=== PATIENT | female | born 1990 | race Caucasian/White ===

== ENCOUNTER 2018-04-19 15:04 | Emergency (ER) | payer BC, MEDICAID ==
[2018-04-19 15:27] VITALS: BP 95/50
--- NOTE | 2018-04-19 15:42 | UC ---
Skin Complaint HPI - HPI Summary HPI Summary: Pt c/o sudden onset of upper lip swelling, itchiness and numbness X 3 days. Denies any known allergies, injury, or hx of herpes virus. - History of Current Complaint Chief Complaint: UCSkin Time Seen by Provider: 04/19/18 15:36 Stated Complaint: LIP SWELLING Hx Obtained From: Patient Hx Last Menstrual Period: 03/22/18 ?: No Onset/Duration: Gradual Onset, Lasting Days - 3 Skin Exposure Onset/Duration: Days Ago Timing: Constant Onset Severity: Mild Current Severity: None Pain Intensity: 0 Location: Other - upper lip Character: Swelling, Pruritus Aggravating Factor(s): Touch Alleviating Factor(s): Nothing Associated Signs & Symptoms: Positive: Numbness - Allergy/Home Medications Allergies/Adverse Reactions: Allergies Allergy/AdvReac Type Severity Reaction Status Date / Time No Known Allergies Allergy Verified 04/19/18 15:28 Review of Systems Constitutional: Negative Skin: Other - lip swelling Eyes: Negative ENT: Negative Respiratory: Negative Cardiovascular: Negative Gastrointestinal: Negative Genitourinary: Negative Motor: Negative Neurovascular: Negative Musculoskeletal: Negative Neurological: Negative Psychological: Negative Is Patient Immunocompromised?: No All Other Systems Reviewed And Are Negative: Yes PMH/Surg Hx/FS Hx/Imm Hx Previously Healthy: Yes - Surgical History Surgical History: None - Family History Known Family History: Positive: Hypertension Negative: Cardiac Disease, Diabetes - Social History Occupation: Employed Full-time Lives: With Family Alcohol Use: Rare Substance Use Type: None Smoking Status (MU): Never Smoked Tobacco Have You Smoked in the Last Year: No Physical Exam Triage Information Reviewed: Yes Appearance: Well-Appearing Vital Signs: Initial Vital Signs Temp 99.6 F 04/19/18 15:23 Pulse 55 04/19/18 15:23 Resp 16 04/19/18 15:23 BP 95/50 04/19/18 15:23 Pulse Ox 100 04/19/18 15:23 Vital Signs Reviewed: Yes Eye Exam: Normal ENT Exam: Normal Dental Exam: Normal Neck exam: Normal Respiratory: Positive: No respiratory distress Musculoskeletal Exam: Normal Neurological Exam: Normal Psychological Exam: Normal Skin Exam: Other - upper lip does not appear edematous, no rash, no urticaria, facial nerves intact. Course/Dx - Differential Diagnoses - Skin Complaint Differential Diagnoses: Allergic Reaction, Angioedema, Urticaria - Diagnoses Provider Diagnoses: allergic reaction Discharge - Sign-Out/Discharge Documenting (check all that apply): Discharge/Admit/Transfer - Discharge Plan Condition: Stable Disposition: HOME Prescriptions: Cetirizine* [ZyrTEC 10 MG TAB*] 10 mg PO DAILY #7 tab predniSONE TAB* [Deltasone 20 MG TAB*] 20 mg PO DAILY #4 tab Patient Education Materials: General Allergic Reaction (ED) Referrals: Radhika Linder MD [Primary Care Provider] - If Needed Additional Instructions: Please follow up with your PCP or return to clinic as needed. Please note if symptoms worsen, please seek care immediately at the closest emergency department. - Billing Disposition and Condition Condition: STABLE Disposition: Home
== END 2018-04-19 15:53 | disposition home or self-care (01) ==
LOC: UCCORT 15:04
DX: T78.40XA Allergy, unspecified, initial encounter (principal); X58.XXXA Exposure to other specified factors, initial encounter
CPT/HCPCS: 99212; G0463

== ENCOUNTER 2018-11-04 16:00 | Emergency (ER) | payer BC ==
[2018-11-04 17:08] VITALS: BP 99/73
--- NOTE | 2018-11-04 17:31 | UC ---
Respiratory Complaint HPI - History of Current Complaint Chief Complaint: UCRespiratory Stated Complaint: COUGH/CONGESTION Time Seen by Provider: 11/04/18 16:47 Hx Last Menstrual Period: 10/14/18 Pain Intensity: 4 - Allergies/Home Medications Allergies/Adverse Reactions: Allergies Allergy/AdvReac Type Severity Reaction Status Date / Time No Known Allergies Allergy Verified 11/04/18 16:57 Home Medications: Home Medications Acne Rx, ?Name 11/04/18 [History] Diphenhydra/Phenyleph/Acetamin [Cold & Flu Relief Multi-S 12.5-5-325 mg/10Ml] 1 liq PO PRN 11/04/18 [History] PMH/Surg Hx/FS Hx/Imm Hx Previously Healthy: Yes - Surgical History Surgical History: None - Family History Known Family History: Positive: Hypertension Negative: Cardiac Disease, Diabetes - Social History Alcohol Use: Rare Substance Use Type: None Smoking Status (MU): Never Smoked Tobacco Have You Smoked in the Last Year: No Physical Exam Vital Signs: Initial Vital Signs Temp 98.2 F 11/04/18 17:00 Pulse 58 11/04/18 17:00 Resp 15 11/04/18 17:00 BP 99/73 11/04/18 17:00 Pulse Ox 100 11/04/18 17:00 UC Diagnostic Evaluation - Laboratory O2 Sat by Pulse Oximetry: 100 Respiratory Course/Dx - Differential Dx/Diagnosis Provider Diagnosis: URI (upper respiratory infection) Discharge - Sign-Out/Discharge Documenting (check all that apply): Patient Departure All imaging exams completed and their final reports reviewed: No Studies - Discharge Plan Condition: Good Disposition: HOME Patient Education Materials: Upper Respiratory Infection (ED) Referrals: Radhika Linder MD [Primary Care Provider] - Additional Instructions: If not improved please follow up with pcp. - Billing Disposition and Condition Condition: GOOD Disposition: Home
[2018-11-04 17:35] LABS: Influenza A Molecular NEGATIVE (Negative); Influenza B Molecular NEGATIVE (Negative)
== END 2018-11-04 17:53 | disposition home or self-care (01) ==
LOC: UCCORT 16:00
DX: J06.9 Acute upper respiratory infection, unspecified (principal)
CPT/HCPCS: 99212; G0463

== ENCOUNTER 2019-02-05 12:16 | Emergency (ER) | payer BC ==
[2019-02-05 13:05] VITALS: BP 93/65
--- NOTE | 2019-02-05 13:51 | ED ---
GI/ HPI - HPI Summary HPI Summary: 28 yo p/w sx of recurrent yeast infection characterized bu vaginal redness burning and irritation,THIS time after her period ended but usually she gets it after sexual activity, after using strong soaps and after drinking ETOH. 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 SHe does tend to get recurrent UTI but denies urinary sx today. - History of Current Complaint Chief Complaint: UCGU Time Seen by Provider: 02/05/19 12:57 Stated Complaint: PERSONAL Hx Obtained From: Patient Hx Last Menstrual Period: January 30 Onset/Duration: Started Days Ago Timing: Constant, Intermittent Severity: Moderate Current Severity: Moderate Pain Intensity: 0 - Allergy/Home Medications Allergies/Adverse Reactions: Allergies Allergy/AdvReac Type Severity Reaction Status Date / Time No Known Allergies Allergy Verified 02/05/19 13:05 PMH/Surg Hx/FS Hx/Imm Hx Previously Healthy: Yes Respiratory History: Reports: Hx Asthma - exercise induced Infectious Disease History: No Infectious Disease History: Denies: Traveled Outside the [place] in Last 30 Days - Family History Known Family History: Positive: Hypertension Negative: Cardiac Disease, Diabetes - Social History Alcohol Use: Rare Substance Use Type: Reports: None Smoking Status (MU): Never Smoked Tobacco Have You Smoked in the Last Year: No Review of Systems - ROS Summary Review of Systems Summary: Constitutional: Negative Eyes: Negative ENT: Negative Cardiovascular: Negative Respiratory: Negative Gastrointestinal: Negative Genitourinary: see HPI Musculoskeletal: Negative Skin: Negative Neurological: Negative Psychological: Normal All Other Systems Reviewed And Are Negative: Yes Physical Exam - Summary Physical Exam Summary: Appearance: Positive: No Pain Distress Skin: Positive: Warm Head/Face: Positive: Normal Head/Face Inspection Eyes: Positive: Normal ENT: Positive: Normal ENT inspection Neck: Positive: Supple Respiratory/Lung Sounds: Positive: Clear to Auscultation. Negative: Rales, Rhonchi, Wheezes Cardiovascular: Positive: Normal, RRR, S1, S2 Abdomen Description: Positive: Nontender, Soft Musculoskeletal: Positive: Normal, Strength/ROM Intact Neurological: Positive: CN Intact II-III -pt declined pelvic exam Vital Signs On Initial Exam: Initial Vitals Temp Pulse Resp BP Pulse Ox 36.8 C 52 18 93/65 100 02/05/19 12:58 02/05/19 12:58 02/05/19 12:58 02/05/19 12:58 02/05/19 12:58 Diagnostics - Vital Signs Vital Signs Temp Pulse Resp BP Pulse Ox 02/05/19 12:58 36.8 C 52 18 93/65 100 - Laboratory Lab Statement: Any lab studies that have been ordered have been reviewed, and results considered in the medical decision making process. GIGU Course/Dx - Diagnoses Provider Diagnoses: Vaginal candidiasis Discharge - Sign-Out/Discharge Documenting (check all that apply): Patient Departure All imaging exams completed and their final reports reviewed: No Studies - Discharge Plan Condition: Stable Disposition: HOME Prescriptions: Fluconazole 150 MG TAB* [Diflucan 150 MG TAB*] 150 mg PO ONCE 3 Days #3 tablet Patient Education Materials: Yeast Infection (ED) Referrals: Radhika Linder MD [Primary Care Provider] - - Billing Disposition and Condition Condition: STABLE Disposition: Home
== END 2019-02-05 13:48 | disposition home or self-care (01) ==
LOC: UCCORT 12:16
DX: B37.3 Candidiasis of vulva and vagina (principal); J45.909 Unspecified asthma, uncomplicated; Z87.440 Personal history of urinary (tract) infections
CPT/HCPCS: 99212; G0463

== ENCOUNTER 2019-03-15 18:38 | Emergency (ER) | payer BC ==
[2019-03-15 19:16] VITALS: BP 101/64
--- NOTE | 2019-03-15 19:30 | UC ---
Lower Extremity/Ankle HPI - HPI Summary HPI Summary: 29-year-old woman comes in with a chief complaint of right lateral ankle pain. Patient recently started running for exercise. One week ago while she was running she felt a pop and a snap and felt pain in the lateral aspect of her right ankle. It's continued be swollen its tender with any Range of motion especially with inversion of the ankle. No complaint of any decreased sensation. - History of Current Complaint Chief Complaint: UCLowerExtremity Stated Complaint: RIGHT ANKLE SWELLING Time Seen by Provider: 03/15/19 19:17 Hx Last Menstrual Period: 02/09/19 Pain Intensity: 6 - Allergies/Home Medications Allergies/Adverse Reactions: Allergies Allergy/AdvReac Type Severity Reaction Status Date / Time No Known Allergies Allergy Verified 03/15/19 19:16 Home Medications: Home Medications Ibuprofen TAB* [Motrin TAB* 800 MG] 800 mg PO ONCE 03/15/19 [History Confirmed 03/15/19] PMH/Surg Hx/FS Hx/Imm Hx Previously Healthy: Yes - Surgical History Surgical History: None - Family History Known Family History: Positive: Hypertension Negative: Cardiac Disease, Diabetes - Social History Alcohol Use: Rare Substance Use Type: None Smoking Status (MU): Never Smoked Tobacco Have You Smoked in the Last Year: No Review of Systems All Other Systems Reviewed And Are Negative: Yes Constitutional: Positive: Negative Skin: Positive: Negative Eyes: Positive: Negative ENT: Positive: Negative Respiratory: Positive: Negative Cardiovascular: Positive: Negative Gastrointestinal: Positive: Negative Motor: Positive: Negative Neurovascular: Positive: Negative Musculoskeletal: Positive: Other: - SEE HPI Neurological: Positive: Negative Psychological: Positive: Negative Is Patient Immunocompromised?: No Physical Exam Triage Information Reviewed: Yes Appearance: Well-Appearing, No Pain Distress, Well-Nourished Vital Signs: Initial Vital Signs Temp 99.0 F 03/15/19 19:12 Pulse 57 03/15/19 19:12 Resp 16 03/15/19 19:12 BP 101/64 03/15/19 19:12 Pulse Ox 99 03/15/19 19:12 Vital Signs Reviewed: Yes Eye Exam: Normal Eyes: Positive: Conjunctiva Clear Neck: Positive: Supple Respiratory: Positive: No respiratory distress Musculoskeletal: Positive: Other: - Right ankle is swollen and tender to palpation on the lateral aspect. The bony prominence of the distal fibula is tender to palpation. Normal dorsalis pedis pulse normal capillary refill no sensation deficit. The foot is nontender. The Achilles tendon is intact and nontender. Neurological Exam: Normal Neurological: Positive: Alert, Muscle Tone Normal Psychological Exam: Normal Psychological: Positive: Age Appropriate Behavior Skin Exam: Normal Lower Extremity Course/Dx - Course Course Of Treatment: I discussed the x-rays with the patient. I do not see any fracture radiologist reading is pending. In clinic patient got an Norm wrap and a gel splint is neurovascularly intact after placement by nursing. Also can use crutches as needed. We discussed eyes anti-inflammatories immobilization and rest. Follow- up with sports medicine if not completely improved. - Differential Dx/Diagnosis Provider Diagnosis: Right ankle sprain Discharge - Sign-Out/Discharge Documenting (check all that apply): Patient Departure All imaging exams completed and their final reports reviewed: No - Discharge Plan Condition: Stable Disposition: HOME Patient Education Materials: Ankle Sprain (ED), Crutch Instructions (ED) Referrals: Radhika Linder MD [Primary Care Provider] - [facility] [Provider Group] Additional Instructions: FOLLOW UP WITH SPORTS MEDICINE. GET RECHECKED SOONER IF YOUR CONDITION WORSENS OR ANY QUESTIONS OR CONCERNS. - Billing Disposition and Condition Condition: STABLE Disposition: Home
--- NOTE | 2019-03-16 07:30 | UC ---
- Progress Note Progress Note: Patient Name: ASHTYN AVILA Medical Record#: [id number] Ordering Physician: Paul Schmidt MD Acct.#: [id number] : 1990 Age: 29 Sex: F Location: URGENT [facility] Exam Date: 03/15/191923 ADM Status: [facility] ER Order Information: ANKLE RIGHT 3+VWS Accession Number: [id number] CPT: 67684 INDICATION: Right ankle injury. TECHNIQUE: 3 views of the right ankle were obtained. FINDINGS: Soft tissue swelling is noted along the anterolateral aspect of the ankle. No fracture is seen. Joint spaces appear maintained. IMPRESSION: SOFT TISSUE SWELLING, NO FRACTURE IS SEEN. R0 Preliminary Imaging Read R0 <Electronically signed by Arnie Kruger MD in OV> 03/16/19709 Dictated By: Arnie Kruger MD Dictated Date/Time: 03/16/19709 Transcribed Date/Time: 03/16/19708 Copy to: CC:Radhika Linder MD; Paul Schmidt MD Imaging - [facility] Imaging - [facility] [address] [place] [address] ph [phone]) ph ([phone]) ph ([phone]) This report is only to be considered final once signed by the Provider(s) as displayed in the "<Electronically Signed by >" field (s). Absence of a signature indicates the report is in a draft status and still needs to be finalized. In the event this document was created by someone other than the signing Provider, the individual initiating the document will be listed in the "Entered by:" or "Dictated by:" [email or web address]. 1 of 1 Course/Dx - Diagnoses Provider Diagnoses: Right ankle sprain Discharge - Sign-Out/Discharge Documenting (check all that apply): Post-Discharge Follow Up All imaging exams completed and their final reports reviewed: Yes - Discharge Plan Condition: Stable Disposition: HOME Patient Education Materials: Ankle Sprain (ED), Crutch Instructions (ED) Referrals: [facility] [Provider Group] Radhika Linder MD [Primary Care Provider] - Additional Instructions: FOLLOW UP WITH SPORTS MEDICINE. GET RECHECKED SOONER IF YOUR CONDITION WORSENS OR ANY QUESTIONS OR CONCERNS. - Billing Disposition and Condition Condition: STABLE Disposition: Home
== END 2019-03-15 20:21 | disposition home or self-care (01) ==
LOC: UCCORT 18:38
DX: S93.401A Sprain of unspecified ligament of right ankle, initial encounter (principal); X50.0XXA Overexertion from strenuous movement or load, initial encounter; Y93.02 Activity, running; Y92.9 Unspecified place or not applicable
CPT/HCPCS: 99213; G0463

== ENCOUNTER 2019-06-27 16:46 | Emergency (ER) | payer BC ==
--- NOTE | 2019-06-27 20:04 | UC ---
Complaint Female HPI - HPI Summary HPI Summary: 29-year-old female presents with 2 day history of dysuria and urinary frequency. Patient also reports a thick, white vaginal discharge. States that she had unprotected intercourse with a new male partner approximately one week ago. Previous history of Chlamydia. Last menstrual period was 06/08/2019. Denies fever, chills, abdominal pain, nausea, vomiting, back or flank pain, hematuria, urgency, vaginal lesions, or dyspareunia. - History Of Current Complaint Chief Complaint: UCGU Stated Complaint: URINARY Time Seen by Provider: 06/27/19 18:29 Hx Obtained From: Patient Hx Last Menstrual Period: 06/08/19 Pain Intensity: 2 - Allergies/Home Medications Allergies/Adverse Reactions: Allergies Allergy/AdvReac Type Severity Reaction Status Date / Time No Known Allergies Allergy Verified 06/27/19 17:59 Home Medications: Home Medications NK [No Home Medications Reported] 06/27/19 [History Confirmed 06/27/19] PMH/Surg Hx/FS Hx/Imm Hx Previously Healthy: Yes - Denies significant PMH - Surgical History Surgical History: None - Family History Known Family History: Positive: Hypertension Negative: Cardiac Disease, Diabetes - Social History Occupation: Employed Full-time Lives: With Family Alcohol Use: Rare Substance Use Type: None Smoking Status (MU): Never Smoked Tobacco Have You Smoked in the Last Year: No Review of Systems All Other Systems Reviewed And Are Negative: Yes Constitutional: Negative: Fever, Chills Skin: Negative: Rash Respiratory: Positive: Negative Cardiovascular: Positive: Negative Gastrointestinal: Negative: Abdominal Pain, Vomiting, Diarrhea, Nausea Genitourinary: Positive: Dysuria, Frequency, Vaginal/Penile Discharge. Negative : Hematuria, Urgency, Vaginal/Penile Burning, Vaginal/Penile Itching, Ulceration /Lesion, Abnormal Bleeding Musculoskeletal: Positive: Negative Neurological: Positive: Negative Psychological: Positive: Negative Is Patient Immunocompromised?: No Physical Exam - Summary Physical Exam Summary: GENERAL APPEARANCE: Well developed, well nourished, alert and cooperative, and appears to be in no acute distress. CARDIAC: Normal S1 and S2. No S3, S4 or murmurs. Rhythm is regular. There is no peripheral edema, cyanosis or pallor. Extremities are warm and well perfused. Capillary refill is less than 2 seconds. Peripheral pulses intact. LUNGS: Clear to auscultation without rales, rhonchi, wheezing or diminished breath sounds. ABDOMEN: Positive bowel sounds. Soft, nondistended, nontender. No guarding or rebound. No masses or hepatosplenomegally. No CVA tenderness. GENITOURINARY: Normal external genitalia without lesions or ulcerations. Thick , white vaginal discharge. Parous cervix without lesions. No CMT. No adnexal masses or tenderness. Cultures were obtained and sent. MUSKULOSKELETAL: ROM intact to all extremities. No joint erythema or tenderness. Normal muscular development. Normal gait. SKIN: Skin normal color, texture and turgor with no lesions or eruptions. Triage Information Reviewed: Yes Vital Signs: Initial Vital Signs Temp 98.7 F 06/27/19 17:52 Pulse 60 06/27/19 17:52 Resp 16 06/27/19 17:52 BP 95/65 06/27/19 17:52 Pulse Ox 99 06/27/19 17:52 Vital Signs Reviewed: Yes Complaint Female Dx - Course Course Of Treatment: 29-year-old female presents with 2 day history of dysuria and urinary frequency. Patient also reports a thick, white vaginal discharge. States that she had unprotected intercourse with a new male partner approximately one week ago. Previous history of Chlamydia. Last menstrual period was 06/08/2019. Denies fever, chills, abdominal pain, nausea, vomiting, back or flank pain, hematuria, urgency, vaginal lesions, or dyspareunia. Afebrile. Vital signs stable. Patient had a soft, nontender abdomen, no CVA tenderness, normal external genitalia without lesions or ulcerations, thick white vaginal discharge , parous cervix without lesions, no motion tenderness, no adnexal masses or tenderness, and otherwise unremarkable exam. [id number] urinalysis showed trace blood and was otherwise unremarkable. Urine culture pending. Point-of- care urine was negative. Cultures were sent for gonorrhea, chlamydia , Gardnerella, Trichomonas, and vaginal yeast. Discussed empiric treatment for possible sexually transmitted infection versus awaiting the results of her cultures and patient is electing for the latter. She has been advised to avoid sexual intercourse until the results are obtained. She is to follow-up with her primary care provider in 3 days if symptoms persist. Anticipatory guidance and warning symptoms were reviewed with the patient. Verbalizes understanding and agrees with plan of care. - Differential Dx/Diagnosis Differential Diagnosis/HQI/PQRI: Cervicitis, Ovarian Cyst, Pelvic Inflammatory Disease, , Renal Colic, Sexually Transmitted Disease, Urinary Tract Infection Provider Diagnosis: Dysuria Discharge ED - Sign-Out/Discharge Documenting (check all that apply): Patient Departure All imaging exams completed and their final reports reviewed: No Studies - Discharge Plan Condition: Stable Disposition: HOME Patient Education Materials: Dysuria (ED) Referrals: Radhika Linder MD [Primary Care Provider] - 3 Days Additional Instructions: Your urine test in the clinic today showed a trace amount of blood but no evidence of a urinary tract infection. We will send a urine culture today to see if bacteria grow out and then prescribe an antibiotic that is appropriate if indicated. It will take 48-72 hours to get these results. We have also performed testing for gonorrhea, chlamydia, bacterial vaginosis, vaginal yeast infection, and trichimonas. We will contact you if these are positive and start appropriate treatment as indicated. You should avoid all sexual intercourse until we have these results. Drink plenty of fluids. To help prevent urinary tract infections: 1) Be sure to wipe from front to back. 2) Urinate immediately after any sexual intercourse. 3) Avoid taking bubble baths. Follow up with your primary care provider in 3 days if symptoms persist. Seek immediate medical attention in the emergency room if you develop fever greater than 100.5 F, have severe abdominal pain, persistent vomiting, or any worsening of symptoms. - Billing Disposition and Condition Condition: STABLE Disposition: Home
[2019-06-27 20:15] VITALS: BP 105/71
[2019-06-29 13:04] LABS: Chlamydia trachomatis NAA Negative (Negative); Neisseria gonorrhoeae (GC) NAA Negative (Negative)
== END 2019-06-27 20:15 | disposition home or self-care (01) ==
LOC: UCCORT 16:46
DX: R30.0 Dysuria (principal)
CPT/HCPCS: 81003; 84702; 87086; 87480; 87491; 87510; 87591; 87661; 99212; G0463

== ENCOUNTER 2019-08-08 15:21 | Emergency (ER) | payer BC ==
[2019-08-08 17:26] VITALS: BP 137/65
--- NOTE | 2019-08-08 17:29 | UC ---
Complaint Female HPI - HPI Summary HPI Summary: 29 y/o female presents to the urgent care c/o vaginal irritation and redness w/ a white vaginal discharge s/p unprotected sexual intercourse 2 day ago w/ a new partner. She is concerned on STD's. She also c/o of itchiness. Pt denies urinary symptoms. She states PMHX of chlamydia in the past which was treated. Pt denies pelvic pain or lower back pain. Last PAP was last year and negative. Pt took a Dyflucan PO yesterday that she has from a previous Rx. However she feels her vaginal discharge is very profuse. Pt denies fever, SOB, abdominal pain, flank pain, N/V/D, hematuria. - History Of Current Complaint Chief Complaint: UCGU Stated Complaint: PERSONAL Time Seen by Provider: 08/08/19 17:20 Hx Obtained From: Patient Hx Last Menstrual Period: 08/03 ?: No Onset/Duration: Gradual Onset, Lasting Days - 2 days of n=unprotected sexual intercourse w/ a white vaginal discharge, Still Present, Worse Since - today Timing: Constant Severity Initially: Mild Severity Currently: Moderate Pain Intensity: 4 - vaginal irritation Pain Scale Used: 0-10 Numeric Character: Dull Aggravating Factor(s): Canalou Alleviating Factor(s): Nothing Associated Signs And Symptoms: Negative: Fever, Back Pain - white w/ itchiness, Nausea, Vomiting(# Of Episodes =), Genital Swelling, Genital Blisters - Risk Factors Ectopic Risk Factor: Negative Ovarian Torsion Risk Factor: Negative - Allergies/Home Medications Allergies/Adverse Reactions: Allergies Allergy/AdvReac Type Severity Reaction Status Date / Time No Known Allergies Allergy Verified 08/08/19 17:19 PMH/Surg Hx/FS Hx/Imm Hx Previously Healthy: Yes Respiratory History: Asthma - Surgical History Surgical History: None - Family History Known Family History: Positive: Hypertension, Diabetes Negative: Cardiac Disease - Social History Occupation: Employed Full-time Lives: With Family Alcohol Use: Rare Substance Use Type: None Smoking Status (MU): Never Smoked Tobacco Have You Smoked in the Last Year: No Review of Systems All Other Systems Reviewed And Are Negative: Yes Constitutional: Positive: Negative Skin: Positive: Negative Eyes: Positive: Negative ENT: Positive: Negative Respiratory: Positive: Negative Cardiovascular: Positive: Negative Gastrointestinal: Positive: Negative Genitourinary: Positive: Vaginal/Penile Itching, Vaginal/Penile Discharge - white, Vaginal/Penile Tenderness - irritation Motor: Positive: Negative Neurovascular: Positive: Negative Musculoskeletal: Positive: Negative Neurological: Positive: Negative Psychological: Positive: Negative Is Patient Immunocompromised?: No Physical Exam - Summary Physical Exam Summary: Vital signs: reviewed General: well developed, well nourished femalet sitting in the examining table w/o any acute distress. Head: Normocephalic, no lesions. Eyes: PERRLA, EOM's full, conjunctiva clear, fundi grossly normal. Ears: EAC's clear, TM's normal. Nose: Mucosa normal, no obstruction. Throat: Clear, no exudates, no lesions. Neck: Supple, no masses, no thyromegaly, no bruits. Chest: Lungs clear, no rales, no rhonchi, no wheezes. Heart: RR, no murmurs, no rubs, no gallops. Abdomen: Soft, no tenderness, no masses, BS normal. Pelvic: I was assisted by nurse Allyn. External genitalia within normal limits. There is no lesions there is no masses noted. Speculum exam: The vaginal glass are within normal limits w/ white cottage cheese vaginal discharge , no lesions or rashes. The cervix is closed with no lesions or masses. There is no CMT's, and no adnexal masses. Sample sent to Lab for G/C and Affirm panel and thrichomonas. Rectal: No lesions, no hemorrhoids, Back: Normal curvature, no tenderness. Extremities: FROM, no deformities, no edema, no erythema. Neuro: Physiological, no localizing findings. Skin: Normal, no rashes, no lesions noted. Triage Information Reviewed: Yes Vital Signs: Initial Vital Signs Temp 98.2 F 08/08/19 17:21 Pulse 87 08/08/19 17:21 Resp 20 08/08/19 17:21 BP 137/65 08/08/19 17:21 Pulse Ox 99 08/08/19 17:21 Complaint Female Dx - Course Course Of Treatment: 29 y/o female presents to the urgent care c/o vaginal irritation and redness w/ a white vaginal discharge s/p unprotected sexual intercourse 2 day ago w/ a new partner. She is concerned on STD's. She also c/o of itchiness. Pt denies urinary symptoms. She states PMHX of chlamydia in the past which was treated. Pt denies pelvic pain or lower back pain. Last PAP was last year and negative. Pt took a Dyflucan PO yesterday that she has from a previous Rx. However she feels her vaginal discharge is very profuse. Pt denies fever, SOB, abdominal pain, flank pain, N/V/D, hematuria. Hx obtained. I was assisted by nurse Zaina for pelvic exam. Pt w/ a white cottage cheese vaginal discharge on pelvic examination. Pt w/ probably Vulvovaginal candidiasis. Pt already took 1 tab Dyflucan yesterday she had at home. Pt Rx Fluconazole 150mg as directed below. Samples sent to Lab for Affirm panel and GC/chlamydia and trichomonas to r/o any abnormality. pt will be notified of any abnormal result. UA: trace of leukesterases. Urine culture sent to lab to r/o any abnormality. test :negative. Educated on STD's and protection. Advised to f/u w/ her POSTDOCTORAL RESEARCH ASSOCIATE if not improvment of symptoms.D/C instructions explained. Pt understood and agreed with plan of care. - Differential Dx/Diagnosis Differential Diagnosis/HQI/PQRI: Cervicitis, Pelvic Inflammatory Disease, , Sexually Transmitted Disease, Ureteral Stone, Urinary Tract Infection Provider Diagnosis: Vulvovaginal candidiasis Discharge ED - Sign-Out/Discharge Documenting (check all that apply): Patient Departure - D/c home All imaging exams completed and their final reports reviewed: No Studies - Discharge Plan Condition: Stable Disposition: HOME Prescriptions: Fluconazole 100 MG TAB* [Diflucan 100 MG TAB*] 100 mg PO ONCE #2 tab Patient Education Materials: Yeast Infection (ED) Referrals: Radhika Linder MD [Primary Care Provider] - 3 Days Additional Instructions: 1- Please take Fluconzazole PO starting tomorrow as directed , since you took 1 tab PO yesterday. 3- Specimen were sent to lab, if anything abnormal you will receive a call from us for further treatment. 4-If not improvement of symptoms please return to the urgent care or f/u with your POSTDOCTORAL RESEARCH ASSOCIATE in 3 days for further treatment - Billing Disposition and Condition Condition: STABLE Disposition: Home
--- NOTE | 2019-08-10 07:40 | UC ---
- Progress Note Progress Note: Vaginal DNA from August 08, 2019 comes back as positive for Gardnerella negative for Jyoti. Patient was treated with Diflucan on that date. Nursing to call patient and inform the patient that have called in a prescription for Flagyl 500 mg by mouth twice a day for 7 days that the patient can start to treat the Gardnerella. The rest of the testing is still pending. Course/Dx - Diagnoses Provider Diagnoses: Vulvovaginal candidiasis Discharge ED - Sign-Out/Discharge Documenting (check all that apply): Patient Departure All imaging exams completed and their final reports reviewed: No Studies - Discharge Plan Condition: Stable Disposition: HOME Prescriptions: Fluconazole 100 MG TAB* [Diflucan 100 MG TAB*] 100 mg PO ONCE #2 tab metroNIDAZOLE [Flagyl] 500 mg PO BID #14 tablet Patient Education Materials: Yeast Infection (ED) Referrals: Radhika Linder MD [Primary Care Provider] - 3 Days Additional Instructions: 1- Please take Fluconzazole PO starting tomorrow as directed , since you took 1 tab PO yesterday. 3- Specimen were sent to lab, if anything abnormal you will receive a call from us for further treatment. 4-If not improvement of symptoms please return to the urgent care or f/u with your ULTIMATE HOOPS TRAINER in 3 days for further treatment - Billing Disposition and Condition Condition: STABLE Disposition: Home
[2019-08-10 12:30] LABS: Chlamydia trachomatis NAA Negative (Negative); Neisseria gonorrhoeae (GC) NAA Negative (Negative)
== END 2019-08-08 18:08 | disposition home or self-care (01) ==
LOC: UCCORT 15:21
DX: B37.3 Candidiasis of vulva and vagina (principal); J45.909 Unspecified asthma, uncomplicated
CPT/HCPCS: 81003; 84702; 87086; 87480; 87491; 87510; 87591; 87661; 99212; G0463